=== PATIENT | female | born 1955 | race Caucasian/White ===

== ENCOUNTER 2018-07-04 14:50 | Outpatient (CLI) | payer MEDICARE | END 2018-07-04 14:51 | disposition home or self-care (01) | LOC: BICMAMMO 14:50 | PROVIDERS: ATTEND Internal Medicine Hospice and Palliative Medicine | DX: Z13.820 Encounter for screening for osteoporosis (principal); F17.200 Nicotine dependence, unspecified, uncomplicated | CPT/HCPCS: 77080 ==

== ENCOUNTER 2019-05-31 09:37 | Outpatient (CLI) | payer MEDICARE ==
--- NOTE | 2019-06-07 15:27 | MMO ---
Bilateral MAMMO Bilat Screen [facility]. CLINICAL HISTORY: Patient is 64 years old and is seen for screening. The patient has the following family history of breast cancer: maternal aunt. The patient has no personal history of cancer. VIEWS: The views performed were: bilateral craniocaudal with tomosynthesis and bilateral mediolateral oblique with tomosynthesis. FILMS COMPARED: The present examination has been compared to prior imaging studies performed at [facility] on 09/01/2016 and 09/01/2017. MAMMOGRAM FINDINGS: There are scattered fibroglandular densities. Finding 1: There is an equal density, oval mass measuring 11 millimeters with circumscribed margins seen in the right breast at 12 o'clock. Finding 2: There are stable benign appearing calcifications seen in both breasts. IMPRESSION: FINDING 1: MASS IN THE RIGHT BREAST REQUIRES ADDITIONAL EVALUATION. AN ULTRASOUND EXAM IS RECOMMENDED. THE RESULTS OF THIS EXAM WERE SENT TO THE PATIENT. ACR BI-RADS Category 0 - Incomplete: Need additional imaging evaluation. [facility] will notify the patient of the need for additional imaging services. MAMMOGRAPHY NOTE: 1. A negative mammogram report should not delay a biopsy if a dominant of clinically suspicious mass is present. 2. Approximately 10% to 15% of breast cancers are not detected by mammography. 3. Adenosis and dense breasts may obscure an underlying neoplasm. Reported by: MICHAEL BOSS MD Electonically Signed: [id number]
== END 2019-05-31 09:38 | disposition home or self-care (01) ==
LOC: BICMAMMO 09:37
PROVIDERS: ATTEND Family Medicine
DX: Z12.31 Encounter for screening mammogram for malignant neoplasm of breast (principal); N63.10 Unspecified lump in the right breast, unspecified quadrant; Z80.3 Family history of malignant neoplasm of breast
CPT/HCPCS: 77063; 77067

== ENCOUNTER 2019-06-12 13:19 | Outpatient (CLI) | payer MEDICARE ==
--- NOTE | 2019-06-12 15:29 | ULT ---
RIGHT BREAST ULTRASOUND: Date: 06/12/19 HISTORY: Abnormal mammogram of 05/31/19. FINDINGS: Sonographic evaluation of the 12 o'clock position of the right breast demonstrates a well-circumscrib ed anechoic avascular mass with posterior enhancement consistent with cyst measuring about 1.0 cm, co rresponding to the mammographic finding. IMPRESSION: BI-RADS Category 2 - Benign findings. Return to annual mammographic screening. POS: OFF
== END 2019-06-12 13:20 | disposition home or self-care (01) ==
LOC: BICULT 13:19
PROVIDERS: ATTEND Family Medicine
DX: N63.11 Unspecified lump in the right breast, upper outer quadrant (principal)

== ENCOUNTER 2025-09-12 09:27 | Outpatient (CLI) | payer MEDICARE | END 2025-09-12 09:28 | disposition home or self-care (01) | LOC: SCSBT 09:27 | PROVIDERS: ATTEND Internal Medicine | DX: Z13.820 Encounter for screening for osteoporosis (principal); C50.812 Malignant neoplasm of overlapping sites of left female breast; Z79.818 Long term (current) use of other agents affecting estrogen receptors and estrogen levels | CPT/HCPCS: 77080 ==